=== PATIENT | female | born 1970 | race African-American/Black ===

== ENCOUNTER 2018-08-12 20:26 | Emergency (ER) | payer OTHER, MEDICAID ==
[~2018-08-12] VITALS: Ht 165.1 cm; Wt 95.0 kg
[~2018-08-12 20:26] MED LIST: GLUCOPHAGE; METFORMIN; SIMVASTATIN
[2018-08-13] MEDS ORDERED: ASPIRIN 81MG TABLET PO ONE (00:45)
[2018-08-13 01:03] LABS: BASOPHILS % 0.3 % (0.0-2.0); EOSINOPHILS % 1.3 % (0.0-5.0); HEMATOCRIT. 37.7 % (36.0-48.0); HEMOGLOBIN. 11.8 g/dL (12.0-16.0); LYMPHOCYTES % 36.3 % (20.0-50.0); MEAN CORPUSCULAR HEMOGLOBIN 21.3 pg (28.0-32.0); MEAN CORPUSCULAR VOLUME 68.1 fL (81.0-99.0); MEAN PLATELET VOLUME 8.7 fl (7.4-10.4); MONOCYTES % 9.1 % (2.0-8.0); PLATELET 220 x1000/uL (130-400); RED BLOOD CELL COUNT 5.53 mill/uL (4.2-5.4); RED CELL DISTRIBUTION WIDTH 15.1 % (11.6-14.6)
[2018-08-13 01:08] LABS: CHLORIDE 104 mEq/L (98-107)
[2018-08-13 01:12] LABS: ETHANOL BLOOD < 10 mg/dL
[2018-08-13 01:17] LABS: CLARITY URINE CLEAR (CLEAR); COLOR URINE YELLOW (YELLOW); KETONES URINE NEGATIVE (NEGATIVE); LEUKOCYTE ESTERASE URINE NEGATIVE (NEGATIVE); NITRITE URINE NEGATIVE (NEGATIVE); OCCULT BLOOD URINE NEGATIVE (NEGATIVE); PROTEIN URINE NEGATIVE (NEGATIVE); SPECIFIC GRAVITY URINE 1.029 (1.005-1.030); UROBILINOGEN URINE 0.2 E.U./dL (0.2-1.0)
[2018-08-13 01:18] LABS: BETA HYDROXYBUTYRATE 0.1 mMol/L (0.0-0.3)
[2018-08-13 01:21] LABS: HCG SCREEN NEGATIVE
[2018-08-13 01:28] LABS: *AMPHETAMINES SCREEN URINE NEGATIVE (NEGATIVE)
[2018-08-13 01:29] LABS: *BARBITURATES SCREEN URINE NEGATIVE (NEGATIVE); *BENZODIAZEPINES SCREEN URINE NEGATIVE (NEGATIVE); *COCAINE SCREEN URINE NEGATIVE (NEGATIVE); METHADONE URINE SCREEN NEGATIVE (NEGATIVE); OPIATES URINE SCREEN NEGATIVE (NEGATIVE); PHENCYCLIDINE URINE SCREEN NEGATIVE (NEGATIVE)
[2018-08-13 01:30] LABS: D-DIMER 0.49 mg/L FEU (<0.50); INR 1.2
[2018-08-13 01:30] LABS: CANNABINOID URINE SCREEN NEGATIVE (NEGATIVE)
[2018-08-13 02:01] LABS: PLATELET ESTIMATE NORMAL
[2018-08-13 05:22] VITALS: BP 127/66
== END 2018-08-13 05:23 | disposition short-term general hospital (02) ==
LOC: ER 20:26 → CANBEDREQ 08-13 05:57
DX: R07.89 Other chest pain (principal); R55 Syncope and collapse; I25.10 Atherosclerotic heart disease of native coronary artery without angina pectoris; I10 Essential (primary) hypertension; I25.2 Old myocardial infarction; G40.909 Epilepsy, unspecified, not intractable, without status epilepticus; E78.00 Pure hypercholesterolemia, unspecified; F41.9 Anxiety disorder, unspecified; E11.9 Type 2 diabetes mellitus without complications; Z79.84 Long term (current) use of oral hypoglycemic drugs
CPT/HCPCS: 36415; 71045; 80053; 80305; 80320; 81003; 81025; 82010; 83690; 83880; 84484; 84703; 85025; 85379; 85610; 85730; 93005; 99285; Z7610; G0480

== ENCOUNTER 2019-03-25 18:01 | Emergency (ER) | payer MEDICAID, OTHER ==
[~2019-03-25] VITALS: Ht 162.6 cm; Wt 70.0 kg
[2019-03-25] MEDS ORDERED: SODIUM CHLORIDE 0.9% 1,000 ML IV ONE (19:17)
[2019-03-25 19:53] LABS: CLARITY URINE CLEAR (CLEAR); COLOR URINE YELLOW (YELLOW); KETONES URINE NEGATIVE (NEGATIVE); LEUKOCYTE ESTERASE URINE NEGATIVE (NEGATIVE); NITRITE URINE NEGATIVE (NEGATIVE); OCCULT BLOOD URINE NEGATIVE (NEGATIVE); PROTEIN URINE NEGATIVE (NEGATIVE); SPECIFIC GRAVITY URINE 1.027 (1.005-1.030); UROBILINOGEN URINE 0.2 E.U./dL (0.2-1.0)
[2019-03-25 20:47] LABS: BASOPHILS % 0.4 % (0.0-2.0); EOSINOPHILS % 1.4 % (0.0-5.0); HEMATOCRIT. 35.9 % (36.0-48.0); HEMOGLOBIN. 11.5 g/dL (12.0-16.0); MEAN CORPUSCULAR VOLUME 68.8 fL (81.0-99.0); MEAN PLATELET VOLUME 9.7 fl (7.4-10.4); MONOCYTES % 8.2 % (2.0-8.0); PLATELET 171 x1000/uL (130-400); RED BLOOD CELL COUNT 5.23 mill/uL (4.2-5.4); RED CELL DISTRIBUTION WIDTH 16.2 % (11.6-14.6)
[2019-03-25 20:51] LABS: CHLORIDE 105 mEq/L (98-107)
[2019-03-25 21:16] LABS: PLATELET ESTIMATE NORMAL
[2019-03-25] MEDS ORDERED: ACETAMINOPHEN 325MG TABLET PO ONE (22:45)
[2019-03-25] MEDS ORDERED: ASPIRIN 325MG EC TABLET PO ONE (23:00)
[2019-03-26 01:02] VITALS: BP 132/60
== END 2019-03-26 01:50 | disposition short-term general hospital (02) ==
LOC: ER 18:01
DX: R55 Syncope and collapse (principal); R56.9 Unspecified convulsions; E11.65 Type 2 diabetes mellitus with hyperglycemia; M25.551 Pain in right hip; I10 Essential (primary) hypertension; E78.00 Pure hypercholesterolemia, unspecified; I25.10 Atherosclerotic heart disease of native coronary artery without angina pectoris; I25.2 Old myocardial infarction; F41.9 Anxiety disorder, unspecified
CPT/HCPCS: 36415; 70450; 73502; 80053; 81003; 82962; 84484; 85025; 93005; 96360; 96361; 99285; J7030

== ENCOUNTER 2019-10-27 00:23 | Inpatient (IN) | payer OTHER, MEDICAID ==
[~2019-10-27] VITALS: Ht 160 cm; Wt 95.7 kg
[2019-10-27 01:01] LABS: BASOPHILS % 0.6 % (0.0-2.0); EOSINOPHILS % 1.2 % (0.0-5.0); HEMATOCRIT. 37.6 % (36.0-48.0); MEAN CORPUSCULAR HEMOGLOBIN 22.2 pg (28.0-32.0); MEAN CORPUSCULAR VOLUME 69.4 fL (81.0-99.0); MEAN PLATELET VOLUME 8.9 fl (7.4-10.4); MONOCYTES % 7.2 % (2.0-8.0); PLATELET 174 x1000/uL (130-400); RED BLOOD CELL COUNT 5.42 mill/uL (4.2-5.4); RED CELL DISTRIBUTION WIDTH 14.9 % (11.6-14.6)
[2019-10-27 01:05] LABS: PLATELET ESTIMATE NORMAL
[2019-10-27 01:07] LABS: CHLORIDE 108 mEq/L (98-107)
[2019-10-27 01:29] LABS: HCG SCREEN NEGATIVE
[2019-10-27 02:43] LABS: D-DIMER 0.77 mg/L FEU (<0.50); INR 1.1; PARTIAL THROMBOPLASTIN TIME 25.6 sec (23.4-31.0); PROTHROMBIN TIME 11.9 sec (9.6-11.0)
[2019-10-27] MEDS ORDERED: AZITHROMYCIN 500 MG in DEXT 5% WATER 250 ML IV ONE (03:15)
[2019-10-27] MEDS ORDERED: CEFTRIAXONE 1 G PREMIX 50 ML IV ONE (03:15)
[2019-10-27] MEDS ORDERED: ACETAMINOPHEN 325MG TABLET PO ONE (03:15)
[2019-10-27] MEDS ORDERED: ACETAMINOPHEN 325MG TABLET PO PRN ×2 (06:00)
[2019-10-27] MEDS ORDERED: ONDANSETRON HCL 4MG/2ML INJ IV PRN (06:00)
[2019-10-27] MEDS ORDERED: MAGNESIUM/ALUMINUM HYDROXIDE/SIMETHICONE 30ML UDC PO PRN (06:00)
[2019-10-27] MEDS ORDERED: DOCUSATE SODIUM 100MG CAPSULE PO PRN (06:00)
[2019-10-27] MEDS ORDERED: GUAIFENESIN 200MG/10ML SUGAR FREE UDC PO PRN (06:00)
[2019-10-27] MEDS ORDERED: DEXTROSE 50% WATER 50ML SYRINGE IV PRN (06:00)
[2019-10-27] MEDS ORDERED: KETOROLAC 15MG/ML VIAL IV PRN (06:00)
[2019-10-27] MEDS ORDERED: TRAMADOL 50MG TABLET PO PRN (06:00)
[2019-10-27] MEDS ORDERED: ONDANSETRON HCL 4MG/2ML INJ IV ONE (06:00)
[2019-10-27] MEDS ORDERED: IPRATROPIUM/ALBUTEROL 0.5-3(2.5)MG/3ML NEB ORI PRN (06:00)
[2019-10-27] MEDS ORDERED: ZOLPIDEM TARTRATE 5MG TABLET PO PRN (06:00)
[2019-10-27] MEDS ORDERED: CLONIDINE 0.1MG TABLET PO PRN (06:00)
[2019-10-27] MEDS ORDERED: NITROGLYCERIN 0.4MG TABLET SL SL PRN (06:00)
[2019-10-27 11:00] VITALS: BP 120/60
[2019-10-27] MEDS ORDERED: ASPI-1497 PO (11:22)
[2019-10-27] MEDS ORDERED: CLOP75TA4 PO (11:22)
[2019-10-27] MEDS ORDERED: LISI2.5T47 MT (11:22)
[2019-10-27] MEDS ORDERED: IOHEXOL-350 100 ML BOTTLE ONE (11:32)
[2019-10-27] MEDS: CLOPIDOGREL 75MG TABLET PO SCH (11:44)
[2019-10-27] MEDS: ASPIRIN 325MG EC TABLET PO SCH (11:44)
[2019-10-27] MEDS: ZINC SULFATE 220 MG ( 50 ) CAPSULE PO SCH (11:44)
[2019-10-27] MEDS: FAMOTIDINE 20MG TABLET PO SCH ×2 (11:44→20:39)
[2019-10-27] MEDS: ENOXAPARIN 30MG/0.3ML SYR SUBCUT SCH ×2 (11:45→20:39)
[2019-10-27] MEDS: ASCORBIC ACID 500 MG TABLET PO SCH ×2 (11:45→20:40)
[2019-10-27] MEDS: METOPROLOL TARTRATE 25MG TABLET PO SCH ×2 (12:51→20:40)
[2019-10-27] MEDS: BLOOD SUGAR DIAGNOSTIC STRIP TEST SCH ×3 (13:01→20:50)
[2019-10-27] MEDS: INSULIN LISPRO 100 UNITS/ML SUBCUT SCH ×3 (13:01→20:54)
[2019-10-27 16:00] VITALS: BP 118/74
[2019-10-27 18:00] LABS: *AMPHETAMINES SCREEN URINE NEGATIVE (NEGATIVE); *BARBITURATES SCREEN URINE NEGATIVE (NEGATIVE); *BENZODIAZEPINES SCREEN URINE NEGATIVE (NEGATIVE)
[2019-10-27 18:01] LABS: *COCAINE SCREEN URINE NEGATIVE (NEGATIVE); CANNABINOID URINE SCREEN NEGATIVE (NEGATIVE); METHADONE URINE SCREEN NEGATIVE (NEGATIVE); OPIATES URINE SCREEN NEGATIVE (NEGATIVE); PHENCYCLIDINE URINE SCREEN NEGATIVE (NEGATIVE)
[2019-10-27 20:00] VITALS: BP 128/68
[2019-10-27] MEDS: ATORVASTATIN CALCIUM 40MG TABLET PO SCH (20:41)
[2019-10-28] VITALS: BP 135/66
[2019-10-28 04:00] VITALS: BP 119/52
[2019-10-28] MEDS: BLOOD SUGAR DIAGNOSTIC STRIP TEST SCH ×4 (06:31→21:00)
[2019-10-28 08:00] VITALS: BP 136/74
[2019-10-28] MEDS: CLOPIDOGREL 75MG TABLET PO SCH (09:31)
[2019-10-28] MEDS: ASCORBIC ACID 500 MG TABLET PO SCH ×2 (09:31→21:58)
[2019-10-28] MEDS: ASPIRIN 325MG EC TABLET PO SCH (09:31)
[2019-10-28] MEDS: ZINC SULFATE 220 MG ( 50 ) CAPSULE PO SCH (09:31)
[2019-10-28] MEDS: FAMOTIDINE 20MG TABLET PO SCH ×2 (09:31→21:58)
[2019-10-28] MEDS: METOPROLOL TARTRATE 25MG TABLET PO SCH ×2 (09:32→21:59)
[2019-10-28] MEDS: ENOXAPARIN 30MG/0.3ML SYR SUBCUT SCH ×2 (09:32→22:01)
[2019-10-28] MEDS: INSULIN LISPRO 100 UNITS/ML SUBCUT SCH ×4 (09:34→22:01)
[2019-10-28 12:00] VITALS: BP 126/70
[2019-10-28] MEDS ORDERED: VANCOMYCIN 2,000 MG in DEXT 5% WATER 500 ML IV SCH (12:00)
[2019-10-28 16:00] VITALS: BP 128/69
[2019-10-28 16:50] LABS: CHLORIDE 105 mEq/L (98-107)
[2019-10-28 16:53] LABS: BASOPHILS % 0.2 % (0.0-2.0); HEMATOCRIT. 35.6 % (36.0-48.0); HEMOGLOBIN. 11.2 g/dL (12.0-16.0); LYMPHOCYTES % 33.9 % (20.0-50.0); MEAN CORPUSCULAR HEMOGLOBIN 21.8 pg (28.0-32.0); MEAN CORPUSCULAR VOLUME 69.3 fL (81.0-99.0); MEAN PLATELET VOLUME 9.6 fl (7.4-10.4); NEUTROPHILS % 57.9 % (40.0-76.0); PLATELET 170 x1000/uL (130-400); RED BLOOD CELL COUNT 5.14 mill/uL (4.2-5.4); RED CELL DISTRIBUTION WIDTH 14.9 % (11.6-14.6)
[2019-10-28 16:59] LABS: CREATINE KINASE 74 IU/L (26-192)
[2019-10-28 17:01] LABS: CREATINE KINASE MB FRACTION < 1.0 ng/mL (0.5-3.6)
[2019-10-28] MEDS ORDERED: DIPHENHYDRAMINE 50MG/ML VIAL IV PRN (18:30)
[2019-10-28 20:17] VITALS: BP 141/61
[2019-10-28] MEDS: ATORVASTATIN CALCIUM 40MG TABLET PO SCH (21:58)
[2019-10-28] MEDS ORDERED: VANCOMYCIN 1 G PREMIX 200 ML IV SCH (23:00)
== END 2019-10-28 23:00 | disposition short-term general hospital (02) | DRG 871 ==
LOC: ER 00:23 → 7WST 03:24 → ENRESERV 08:22 → CANRESERV 08:22 → 6WST 23:45
PROVIDERS: ADMIT Internal Medicine; ATTEND Internal Medicine
DX: A41.89 Other specified sepsis (principal); J18.9 Pneumonia, unspecified organism; E44.1 Mild protein-calorie malnutrition; F41.9 Anxiety disorder, unspecified; M94.0 Chondrocostal junction syndrome [Tietze]; E11.9 Type 2 diabetes mellitus without complications; E78.00 Pure hypercholesterolemia, unspecified; E78.5 Hyperlipidemia, unspecified; F31.9 Bipolar disorder, unspecified; I10 Essential (primary) hypertension; I25.10 Atherosclerotic heart disease of native coronary artery without angina pectoris; Z20.828 Contact with and (suspected) exposure to other viral communicable diseases; Z79.02 Long term (current) use of antithrombotics/antiplatelets; Z79.4 Long term (current) use of insulin; Z79.82 Long term (current) use of aspirin; Z83.3 Family history of diabetes mellitus; Z95.5 Presence of coronary angioplasty implant and graft; I25.2 Old myocardial infarction; Z68.37 Body mass index [BMI] 37.0-37.9, adult
CPT/HCPCS: 36415; 71045; 71275; 80053; 80061; 80305; 82550; 82553; 82962; 83036; 83605; 83880; 84484; 84703; 85025; 85379; 87077; 93005; 93306; 93970; 99285; J0456; J0696; J1200; J1650; J1815; J2405; J3370; J7060; Q9967; U0003-CS

== ENCOUNTER 2020-08-27 19:37 | Inpatient (IN) | payer OTHER, MEDICAID ==
[~2020-08-27] VITALS: Ht 160 cm; Wt 110.5 kg
[~2020-08-27 19:37] MED LIST changes: +ASPI-1497 PO; +CLOP-31 PO; -GLUCOPHAGE; +LISI2.5T47 MT; -METFORMIN; -SIMVASTATIN
[2020-08-27] MEDS ORDERED: LORAZEPAM 2MG/ML CPJ IV ONE (21:15)
[2020-08-27 21:46] LABS: BASOPHILS % 0.2 % (0.0-2.0); EOSINOPHILS % 1.5 % (0.0-5.0); HEMOGLOBIN. 11.2 g/dL (12.0-16.0); LYMPHOCYTES % 32.1 % (20.0-50.0); MEAN CORPUSCULAR HEMOGLOBIN 21.6 pg (28.0-32.0); MEAN CORPUSCULAR VOLUME 67.6 fL (81.0-99.0); MONOCYTES % 9.2 % (2.0-8.0); PLATELET 171 x1000/uL (130-400); RED BLOOD CELL COUNT 5.18 mill/uL (4.2-5.4); RED CELL DISTRIBUTION WIDTH 16.3 % (11.6-14.6)
[2020-08-27 21:48] LABS: CHLORIDE 110 mEq/L (98-107)
[2020-08-27 21:51] LABS: INR 1.2; PROTHROMBIN TIME 12.3 sec (9.6-11.0)
[2020-08-27 21:52] LABS: ETHANOL BLOOD < 10 mg/dL
[2020-08-27 21:55] LABS: LDL CHOLESTEROL 96 mg/dL (5-100)
[2020-08-27] MEDS ORDERED: LEVETIRACETAM 500MG PREMIX 100 ML IV ONE (22:00)
[2020-08-27] MEDS ORDERED: DOCUSATE SODIUM 100MG CAPSULE PO PRN (23:00)
[2020-08-27] MEDS ORDERED: LORAZEPAM 0.5MG TABLET PO PRN (23:00)
[2020-08-27] MEDS ORDERED: CLONIDINE 0.1MG TABLET PO PRN (23:00)
[2020-08-27] MEDS ORDERED: DIPHENHYDRAMINE 50MG/ML VIAL IV PRN (23:00)
[2020-08-27] MEDS ORDERED: ACETAMINOPHEN 325MG TABLET PO PRN (23:00)
[2020-08-27] MEDS ORDERED: ONDANSETRON HCL 4MG/2ML INJ IV PRN (23:00)
[2020-08-27] MEDS ORDERED: MAGNESIUM/ALUMINUM HYDROXIDE/SIMETHICONE 30ML UDC PO PRN (23:00)
[2020-08-27] MEDS ORDERED: DEXTROSE 50% WATER 50ML SYRINGE IV PRN (23:00)
[2020-08-27] MEDS ORDERED: MORPHINE SULFATE 2 MG/ML CPJ (NOT FOR IM USE) IV PRN (23:00)
[2020-08-27] MEDS ORDERED: HYDROCODONE/ACETAMINOPHEN 5/325MG TABLET PO PRN (23:00)
[2020-08-27] MEDS ORDERED: ACETAMINOPHEN 650MG SUPP PR PRN (23:00)
[2020-08-27] MEDS ORDERED: IPRATROPIUM/ALBUTEROL 0.5-3(2.5)MG/3ML NEB HHN PRN (23:00)
[2020-08-27] MEDS ORDERED: GUAIFENESIN 200MG/10ML SUGAR FREE UDC PO PRN (23:00)
[2020-08-27] MEDS ORDERED: IOHEXOL-350 100 ML BOTTLE ONE (23:21)
[2020-08-28] VITALS (14 sets, daily range): BP systolic 109–149; BP diastolic 44–81
[2020-08-28] MEDS ORDERED: ATOR80TA MT (00:29)
[2020-08-28] MEDS ORDERED: BISO5TAB13 MT (00:29)
[2020-08-28] MEDS ORDERED: TOPI25TA48 MT (00:29)
[2020-08-28] MEDS ORDERED: LOSA25TA26 MT (00:29)
[2020-08-28 03:35] LABS: PLATELET ESTIMATE NORMAL
[2020-08-28 07:01] LABS: BASOPHILS % 0.4 % (0.0-2.0); EOSINOPHILS % 1.8 % (0.0-5.0); HEMATOCRIT. 35.9 % (36.0-48.0); HEMOGLOBIN. 11.1 g/dL (12.0-16.0); LYMPHOCYTES % 29.9 % (20.0-50.0); MEAN CORPUSCULAR HEMOGLOBIN 21.1 pg (28.0-32.0); MEAN CORPUSCULAR VOLUME 68.4 fL (81.0-99.0); MEAN PLATELET VOLUME 9.4 fl (7.4-10.4); MONOCYTES % 9.2 % (2.0-8.0); NEUTROPHILS % 58.7 % (40.0-76.0); PLATELET 179 x1000/uL (130-400); RED BLOOD CELL COUNT 5.26 mill/uL (4.2-5.4); RED CELL DISTRIBUTION WIDTH 16.5 % (11.6-14.6)
[2020-08-28] MEDS: BLOOD SUGAR DIAGNOSTIC STRIP TEST SCH ×4 (07:04→21:18)
[2020-08-28 07:08] LABS: CHLORIDE 113 mEq/L (98-107)
[2020-08-28 07:15] LABS: LDL CHOLESTEROL 106 mg/dL (5-100)
[2020-08-28 07:16] LABS: HDL CHOLESTEROL 43 mg/dL (40-59)
[2020-08-28 07:17] LABS: T4 FREE 1.03 ng/dL (0.76-1.46)
[2020-08-28] MEDS: INSULIN LISPRO 100 UNITS/ML SUBCUT SCH ×4 (07:20→21:28)
[2020-08-28] MEDS ORDERED: PNEUMOCOCCAL 23-VAL P-SAC VAC 0.5 ML IM ONE (08:00)
[2020-08-28] MEDS: ENOXAPARIN 30MG/0.3ML SYR SUBCUT SCH ×2 (09:00→21:29)
[2020-08-28] MEDS: CLOPIDOGREL 75MG TABLET PO SCH (09:07)
[2020-08-28] MEDS: LOSARTAN POTASSIUM 25 MG TABLET PO SCH (09:07)
[2020-08-28] MEDS: LEVETIRACETAM 500MG TABLET PO SCH ×2 (09:07→21:28)
[2020-08-28] MEDS: TOPIRAMATE 25MG TABLET PO SCH ×2 (09:07→21:28)
[2020-08-28] MEDS ORDERED: INFLUENZA VACCINE 05/PF 0.5 ML VIAL IM ONE (10:00)
[2020-08-28] MEDS: ATORVASTATIN CALCIUM 40MG TABLET PO SCH (21:28)
[2020-08-29] VITALS (12 sets, daily range): BP systolic 101–141; BP diastolic 56–79
[2020-08-29 06:13] LABS: CHLORIDE 110 mEq/L (98-107)
[2020-08-29 06:47] LABS: BASOPHILS % 0.3 % (0.0-2.0); EOSINOPHILS % 1.7 % (0.0-5.0); HEMATOCRIT. 34.4 % (36.0-48.0); LYMPHOCYTES % 34.1 % (20.0-50.0); MEAN CORPUSCULAR VOLUME 68.4 fL (81.0-99.0); MEAN PLATELET VOLUME 9.9 fl (7.4-10.4); MONOCYTES % 9.2 % (2.0-8.0); NEUTROPHILS % 54.7 % (40.0-76.0); PLATELET 155 x1000/uL (130-400); RED BLOOD CELL COUNT 5.02 mill/uL (4.2-5.4); RED CELL DISTRIBUTION WIDTH 16.6 % (11.6-14.6)
[2020-08-29] MEDS: BLOOD SUGAR DIAGNOSTIC STRIP TEST SCH ×4 (06:52→21:29)
[2020-08-29 07:09] LABS: METHADONE URINE SCREEN NEGATIVE (NEGATIVE)
[2020-08-29 07:10] LABS: *AMPHETAMINES SCREEN URINE NEGATIVE (NEGATIVE); *BARBITURATES SCREEN URINE NEGATIVE (NEGATIVE); CANNABINOID URINE SCREEN NEGATIVE (NEGATIVE); OPIATES URINE SCREEN NEGATIVE (NEGATIVE); PHENCYCLIDINE URINE SCREEN NEGATIVE (NEGATIVE)
[2020-08-29 07:11] LABS: *BENZODIAZEPINES SCREEN URINE NEGATIVE (NEGATIVE); *COCAINE SCREEN URINE NEGATIVE (NEGATIVE)
[2020-08-29] MEDS: ENOXAPARIN 30MG/0.3ML SYR SUBCUT SCH ×2 (08:07→21:28)
[2020-08-29] MEDS: TOPIRAMATE 25MG TABLET PO SCH ×2 (08:07→21:27)
[2020-08-29] MEDS: CLOPIDOGREL 75MG TABLET PO SCH (08:08)
[2020-08-29] MEDS: LEVETIRACETAM 500MG TABLET PO SCH ×2 (08:08→21:26)
[2020-08-29] MEDS: LOSARTAN POTASSIUM 25 MG TABLET PO SCH (08:08)
[2020-08-29] MEDS: INSULIN LISPRO 100 UNITS/ML SUBCUT SCH ×4 (08:11→21:29)
[2020-08-29 09:12] LABS: PROLACTIN 30.8 ng/mL (4.8-23.3)
[2020-08-29] MEDS: ATORVASTATIN CALCIUM 40MG TABLET PO SCH (21:26)
[2020-08-30] VITALS (12 sets, daily range): BP systolic 92–146; BP diastolic 54–82
[2020-08-30] MEDS: BLOOD SUGAR DIAGNOSTIC STRIP TEST SCH ×4 (06:52→20:07)
[2020-08-30 07:49] LABS: BASOPHILS % 0.4 % (0.0-2.0); EOSINOPHILS % 2.3 % (0.0-5.0); HEMATOCRIT. 34.9 % (36.0-48.0); HEMOGLOBIN. 11.2 g/dL (12.0-16.0); LYMPHOCYTES % 31.9 % (20.0-50.0); MEAN CORPUSCULAR HEMOGLOBIN 21.7 pg (28.0-32.0); MEAN PLATELET VOLUME 9.7 fl (7.4-10.4); MONOCYTES % 8.5 % (2.0-8.0); NEUTROPHILS % 56.9 % (40.0-76.0); PLATELET 179 x1000/uL (130-400); RED BLOOD CELL COUNT 5.14 mill/uL (4.2-5.4); RED CELL DISTRIBUTION WIDTH 16.3 % (11.6-14.6)
[2020-08-30 07:57] LABS: CHLORIDE 108 mEq/L (98-107)
[2020-08-30] MEDS: ENOXAPARIN 30MG/0.3ML SYR SUBCUT SCH ×2 (08:09→20:24)
[2020-08-30] MEDS: LEVETIRACETAM 500MG TABLET PO SCH ×2 (08:10→20:23)
[2020-08-30] MEDS: CLOPIDOGREL 75MG TABLET PO SCH (08:10)
[2020-08-30] MEDS: INSULIN LISPRO 100 UNITS/ML SUBCUT SCH ×4 (08:10→20:23)
[2020-08-30] MEDS: TOPIRAMATE 25MG TABLET PO SCH ×2 (08:10→20:23)
[2020-08-30] MEDS: LOSARTAN POTASSIUM 25 MG TABLET PO SCH (08:10)
[2020-08-30] MEDS: ATORVASTATIN CALCIUM 40MG TABLET PO SCH (20:23)
[2020-09-03 05:10] LABS: TOPIRAMATE <1.0 ug/mL (2.0-25.0)
== END 2020-08-30 20:40 | disposition short-term general hospital (02) | DRG 100 ==
LOC: ER 19:53 → 3WST 21:56 → EDBEDREQTM 21:59 → EDBEDREQ 21:59 → ENRESERV 23:00
PROVIDERS: ADMIT Family Medicine Adult Medicine; ATTEND Family Medicine Adult Medicine
DX: G40.909 Epilepsy, unspecified, not intractable, without status epilepticus (principal); I21.9 Acute myocardial infarction, unspecified; E11.649 Type 2 diabetes mellitus with hypoglycemia without coma; E78.5 Hyperlipidemia, unspecified; E87.6 Hypokalemia; I10 Essential (primary) hypertension; Z20.822 Contact with and (suspected) exposure to COVID-19; F41.9 Anxiety disorder, unspecified; E78.00 Pure hypercholesterolemia, unspecified; I25.10 Atherosclerotic heart disease of native coronary artery without angina pectoris; Z95.5 Presence of coronary angioplasty implant and graft; Z79.02 Long term (current) use of antithrombotics/antiplatelets; Z79.899 Other long term (current) drug therapy; Z83.3 Family history of diabetes mellitus; Z79.82 Long term (current) use of aspirin; Z90.49 Acquired absence of other specified parts of digestive tract; Z98.891 History of uterine scar from previous surgery
CPT/HCPCS: 36415; 70496; 70498; 70551; 71045; 72141; 80048; 80053; 80061; 80201; 80305; 80320; 82542; 82962; 83036; 83721; 84146; 84439; 84443; 84484; 85025; 87426; 90732; 93005; 97162; 99291; J1650; J1815; J1953; J2060; Q9967; G0480

== ENCOUNTER 2020-10-04 22:42 | Emergency (ER) | payer OTHER, MEDICAID ==
[~2020-10-04] VITALS: Ht 165.1 cm; Wt 100.0 kg
[~2020-10-04 22:42] MED LIST changes: +ATOR80TA MT; +BISO5TAB13 MT; +LOSA25TA26 MT; +TOPI25TA48 MT
[2020-10-05 00:50] LABS: BASOPHILS % 0.3 % (0.0-2.0); HEMATOCRIT. 33.9 % (36.0-48.0); HEMOGLOBIN. 10.7 g/dL (12.0-16.0); LYMPHOCYTES % 28.2 % (20.0-50.0); MEAN CORPUSCULAR HEMOGLOBIN 21.5 pg (28.0-32.0); MEAN CORPUSCULAR VOLUME 68.1 fL (81.0-99.0); MEAN PLATELET VOLUME 8.9 fl (7.4-10.4); MONOCYTES % 8.2 % (2.0-8.0); NEUTROPHILS % 61.3 % (40.0-76.0); PLATELET 173 x1000/uL (130-400); RED BLOOD CELL COUNT 4.98 mill/uL (4.2-5.4); RED CELL DISTRIBUTION WIDTH 15.8 % (11.6-14.6)
[2020-10-05 00:56] LABS: CHLORIDE 110 mEq/L (98-107)
[2020-10-05 01:01] LABS: ETHANOL BLOOD < 10 mg/dL
[2020-10-05 01:06] LABS: CREATINE KINASE 108 IU/L (26-192)
[2020-10-05 01:33] LABS: CLARITY URINE CLEAR (CLEAR); COLOR URINE YELLOW (YELLOW); KETONES URINE NEGATIVE (NEGATIVE); LEUKOCYTE ESTERASE URINE NEGATIVE (NEGATIVE); NITRITE URINE NEGATIVE (NEGATIVE); OCCULT BLOOD URINE NEGATIVE (NEGATIVE); PROTEIN URINE NEGATIVE (NEGATIVE); SPECIFIC GRAVITY URINE 1.008 (1.005-1.030); UROBILINOGEN URINE 0.2 E.U./dL (0.2-1.0)
[2020-10-05 01:47] LABS: CANNABINOID URINE SCREEN NEGATIVE (NEGATIVE); OPIATES URINE SCREEN NEGATIVE (NEGATIVE); PHENCYCLIDINE URINE SCREEN NEGATIVE (NEGATIVE)
[2020-10-05 01:48] LABS: *AMPHETAMINES SCREEN URINE NEGATIVE (NEGATIVE); *BARBITURATES SCREEN URINE NEGATIVE (NEGATIVE); *BENZODIAZEPINES SCREEN URINE NEGATIVE (NEGATIVE); *COCAINE SCREEN URINE NEGATIVE (NEGATIVE); METHADONE URINE SCREEN NEGATIVE (NEGATIVE)
[2020-10-05 02:43] VITALS: BP 130/68
[2020-10-05 05:07] LABS: PLATELET ESTIMATE NORMAL
== END 2020-10-05 02:45 | disposition home or self-care (01) ==
LOC: ER 22:42
DX: R51.9 Headache, unspecified (principal); I11.9 Hypertensive heart disease without heart failure; E11.9 Type 2 diabetes mellitus without complications; G40.909 Epilepsy, unspecified, not intractable, without status epilepticus; E78.00 Pure hypercholesterolemia, unspecified; I25.2 Old myocardial infarction; Z91.018 Allergy to other foods; Z79.82 Long term (current) use of aspirin
CPT/HCPCS: 36415; 80053; 80305; 80320; 81003; 82550; 84443; 85025; 99283; G0480

== ENCOUNTER 2021-03-22 12:11 | Emergency (ER) | payer OTHER, MEDICAID ==
[~2021-03-22] VITALS: Ht 170.2 cm; Wt 86.0 kg
[2021-03-22] MEDS ORDERED: LABETALOL 5MG/ML SYR 20 MG/4 ML SYRINGE IV ONE (12:45)
[2021-03-22 13:14] LABS: BASOPHILS % 0.3 % (0.0-2.0); EOSINOPHILS % 0.7 % (0.0-5.0); HEMATOCRIT. 38.1 % (36.0-48.0); HEMOGLOBIN. 11.7 g/dL (12.0-16.0); LYMPHOCYTES % 18.8 % (20.0-50.0); MEAN CORPUSCULAR HEMOGLOBIN 20.8 pg (28.0-32.0); MEAN CORPUSCULAR VOLUME 67.8 fL (81.0-99.0); MEAN PLATELET VOLUME 8.5 fl (7.4-10.4); NEUTROPHILS % 74.2 % (40.0-76.0); PLATELET 204 x1000/uL (130-400); RED BLOOD CELL COUNT 5.62 mill/uL (4.2-5.4); RED CELL DISTRIBUTION WIDTH 16.2 % (11.6-14.6)
[2021-03-22 13:28] LABS: CHLORIDE 108 mEq/L (98-107)
[2021-03-22] MEDS ORDERED: ACETAMINOPHEN 325MG TABLET PO ONE (13:30)
[2021-03-22 13:31] LABS: ETHANOL BLOOD < 10 mg/dL
[2021-03-22 14:10] LABS: PLATELET ESTIMATE NORMAL
[2021-03-22 16:18] LABS: *AMPHETAMINES SCREEN URINE NEGATIVE (NEGATIVE); *BARBITURATES SCREEN URINE NEGATIVE (NEGATIVE); *BENZODIAZEPINES SCREEN URINE NEGATIVE (NEGATIVE); *COCAINE SCREEN URINE NEGATIVE (NEGATIVE); OPIATES URINE SCREEN NEGATIVE (NEGATIVE)
[2021-03-22 16:19] LABS: CANNABINOID URINE SCREEN NEGATIVE (NEGATIVE); PHENCYCLIDINE URINE SCREEN NEGATIVE (NEGATIVE)
[2021-03-22 16:21] LABS: METHADONE URINE SCREEN NEGATIVE (NEGATIVE)
[2021-03-22 16:37] VITALS: BP 138/74
== END 2021-03-22 17:25 | disposition short-term general hospital (02) ==
LOC: ER 12:21 → CANBEDREQ 17:53
DX: R55 Syncope and collapse (principal); R42 Dizziness and giddiness; R51.9 Headache, unspecified; I10 Essential (primary) hypertension; G40.909 Epilepsy, unspecified, not intractable, without status epilepticus
CPT/HCPCS: 36415; 71045; 80053; 80305; 80320; 83880; 84484; 85025; 93005; 99291; G0480